=== PATIENT | female | born 1965 | race Native Hawaiian/Other Pacific Islander ===

== ENCOUNTER 2016-07-05 11:46 | Emergency (ER) | payer OTHER ==
[~2016-07-05] VITALS: Ht 160 cm; Wt 117.9 kg
[2016-07-05 12:43] LABS: PLATELET COUNT 244 K/uL (152-353)
[2016-07-05 13:00] LABS: POTASSIUM 4.1 mmol/L (3.6-5.2); SODIUM 133 mmol/L (136-145)
[2016-07-05 15:40] VITALS: BP 142/97; TEMP 97.7
== END 2016-07-05 15:41 | disposition home or self-care (01) ==
LOC: ED 11:46
DX: R10.9 Unspecified abdominal pain (principal); K80.20 Calculus of gallbladder without cholecystitis without obstruction; W19.XXXA Unspecified fall, initial encounter
CPT/HCPCS: 36415; 80053; 81000; 85027; 96374; 99283; J1885; Q9963